=== PATIENT | female | born 1960 | race Hispanic/Latino ===

== ENCOUNTER 2016-10-19 23:19 | Emergency (ER) | payer OTHER ==
[~2016-10-19 23:19] MED LIST: CIPR-231 PO
[2016-10-19 23:33] VITALS: BP 170/82; PULSE 78; RESP 16; O2SAT 98
--- NOTE | 2016-10-20 00:24 | ED.REPORT ---
HPI-General Illness Date of Service Oct 20, 2016 ED Provider: Dr. Crawford Pt is a 56 year old [place] speaking female with a hx of HTN, hyperlipidemia and DM presenting to the ED complaining of high blood pressure and a headache onset at 1800 tonight. Her BP was 237 at home. Associated symptoms include right sided pain, weakness, throbbing in her neck, and right arm numbness ( chronic but worsened with the neck throbbing). Denies any other symptoms at this time. She went to her PCP last week and was told that her cholesterol was high. She denies missing any doses of her blood pressure medication. Nursing Notes Stated Complaint: HIGH BLOOD PRESSURE Chief Complaint: General Complaint Nursing Notes Reviewed: Yes Allergies: Coded Allergies: No Known Allergies (Verified , 11/06/05) Scheduled Ciprofloxacin (Cipro) 500 Mg Tablet 500 MG PO BID General Time Seen by MD: 00:22 Chief Complaint Other (High blood pressure) Hx Obtained From: Patient, Son Arrived By: Walk-in Sudden in Onset?: Yes Onset Occurred: 5 - 8 hours ago Symptom Duration: Since onset Location: : Arm right: Head: Neck Quality: Painful, Throbbing Severity: Current: Moderate Severity: Maximum: Severe Recent Healthcare: No recent doctor visit, No recent hospitalization Similar Sx Previous: No Past Medical History Past Medical History Reports: Diabetes mellitus, Hyperlipidemia, Hypertension Past Surgical History denies Smoking History Unknown if Ever Smoker Social History Other Social History: Good social support Ambulatory Status Independent Review of Systems + Right sided pain Full Review of Systems Respiratory: Denies: Wheezing Cardiovascular: Denies: Chest pain GI: Denies: Vomiting Musculoskeletal: Reports: Neck pain Neurologic: Reports: Numbness, Weakness Complete sys rev & neg: except as marked. Physical Exam Vital Signs Vital Signs Date Time Temp Pulse Resp B/P Pulse Ox O2 Delivery O2 Flow Rate FiO2 10/20/16 03:27 20 125/60 97 Room Air 10/20/16 02:59 73 20 141/75 97 Room Air 10/20/16 02:14 69 15 159/79 99 Room Air 10/19/16 23:33 36.7 78 16 170/82 98 Room Air Initial VS: Reviewed, Vital signs abnormal Head / Eyes: Atraumatic, Normocephalic, PERRL ENT: Mucous membranes moist, Conjunctiva normal, No scleral icterus Respiratory: Breath sounds normal, Clear to auscultation, No respiratory distress Cardiovascular: Regular rate & rhythm, Heart sounds normal, Intact distal pulses Abdomen / GI: Soft, Non-tender, No guarding, No rebound, No distention Extremities: Vascular intact, Neuro intact, No swelling, No tenderness Skin: Warm, Dry, No cyanosis Psychiatric: Mood/affect normal, Behavior normal, Normal thought content General/Constitutional: Awake, Alert, No acute distress, Well appearing Neurologic: Oriented X3, Speech NL, No motor deficits, No sensory deficits, CN II - XII intact Face symmetric. Does not appear confused. Normal strength in all four extremities. NIH stroke scale of 0. Interpretation & Diagnostics Lab Results Interpretation Result Diagram: 10/20/16 0143 10/20/16 0143 Test 10/20/16 01:43 White Blood Count 7.7th/mm3 (3.8-10.1) Red Blood Count 4.06mil/mm3 (3.90-5.20) Hemoglobin 12.5g/dL (12.0-15.6) Hematocrit 34.5% (35.0-46.0) Mean Corpuscular Volume 85.0fL (81-100) Mean Corpuscular Hemoglobin 30.8pg (27.0-35.0) Mean Corpuscular Hemoglobin Concent 36.2% (32.0-37.0) Red Cell Distribution Width 11.7% (12.3-15.4) Platelet Count 229bil/L (150-400) Neutrophils (%) (Auto) 49.2% (40-74) Lymphocytes (%) (Auto) 42.4% (14-46) Monocytes (%) (Auto) 6.9% (4-12) Eosinophils (%) (Auto) 1.0% (0-5) Basophils (%) (Auto) 0.4% (0-3) Sodium Level 137mEq/L (134-144) Potassium Level 3.9mEq/L (3.5-5.2) Chloride Level 98mEq/L (97-108) Carbon Dioxide Level 22mmol/L (18-29) Blood Urea Nitrogen 17mg/dL (6-24) Creatinine 0.69mg/dL (0.57-1.00) Estimat Glomerular Filtration Rate 126mL/min (>59) Glucose Level 177mg/dL (60-99) Calcium Level 9.4mg/dL (8.5-10.1) Magnesium Level 1.7mg/dL (1.6-2.6) Total Bilirubin 0.3mg/dL (0.0-1.2) Aspartate Amino Transf (AST/SGOT) 21U/L (0-50) Alanine Aminotransferase (ALT/SGPT) 22U/L (0-32) Alkaline Phosphatase 58U/L (25-150) Troponin T 0.010ug/L (0.0-0.011) Total Protein 8.0g/dL (6.4-8.4) Albumin 4.5g/dL (3.4-5.0) Hold Geiger Top Tube Received (Received) Lab values outside NL range: no clinical significance. ECG Interpretation Time: 00:03 Interpreted by: ED physician Normal ECG Interpretation: Normal ECG w/ rate of... (75), Normal sinus rhythm X-Ray Chest Interpretation Chest Xray Interpretation: No acute cardiopulmonary process. View: Portable, 1 view Interpretation / Wet Read by: Wet read ED physician CT Head Interpretation CONCLUSION: No acute intracranial findings. This report was transmitted to the emergency room at 10/20/2016 - 1:27:45 AM PDT. Study: Head CT no contrast Interpretation / Wet Read by: Interpret - Radiologist Re-Eval/Medical Decision Med Decision/Clinical Course Elevated blood pressure normalized on its own without specific treatment. Cause uncertain. Head CT scan was performed because of the right-sided neck and arm symptoms, and it was negative. Her headache went away with Tylenol. Head CT scan showed no abnormalities. She will be discharged home with instructions to follow up with her primary doctor as soon as possible. Time of Eval: 03:00 Patient Status: Condition improved Re-Evaluation/Progress Note: Discussed plan for discharge. Pt understands and agrees with plan. Counseled Regarding: Diagnosis, Lab results, Need for follow-up, When/why to return to ED Discharge & Departure Primary Impression: Labile hypertension Additional Impression: Headache Headache type: unspecified Headache chronicity pattern: unspecified pattern Intractability: intractable Qualified Code: R51 - Headache Disposition: Home Discharge Condition All VS Reviewed: Yes Condition: Improved Patient Instructions: Hypertension (DC) Additional Instructions: Keep a written record of your blood pressure readings and talk to your regular doctor about whether your medicines need to be changed or not. CT scan and labs are all normal. No evidence of damage because of the high blood pressure. Referrals: [facility] Scribe Attestation Portions of this note were transcribed by Barby Lou. I, Dr. Crawford personally performed the history, physical exam and medical decision-making; I reviewed and confirmed the accuracy of the information in the transcribed note. Signed by: Bruno Bourgeois, 10/20/2016 at 0300. copies to: [facility] Nikko Crawford MD Oct 20, 2016 00:23 BARBY LOU Oct 20, 2016 00:29
[2016-10-20 01:49] LABS: BASOPHILS % (AUTO) 0.4 % (0-3); MONOCYTES % (AUTO) 6.9 % (4-12); Mean Corpuscular Hemoglobin 30.8 pg (27.0-35.0); NEUTROPHILS % (AUTO) 49.2 % (40-74); Platelet Count 229 bil/L (150-400)
[2016-10-20 02:14] VITALS: BP 159/79; PULSE 69; RESP 15; O2SAT 99
[2016-10-20 02:30] LABS: Magnesium 1.7 mg/dL (1.6-2.6); TROPONIN T 0.01 ug/L (0.0-0.011)
[2016-10-20 02:59] VITALS: BP 141/75; PULSE 73; RESP 20; O2SAT 97
[2016-10-20 03:27] VITALS: BP 125/60; RESP 20; O2SAT 97
--- NOTE | 2016-10-20 08:08 | DRSVH ---
PROCEDURE: CT BRAIN WITHOUT CONTRAST ([id number]) INDICATIONS: right arm weakness and numbness, hi BP TECHNIQUE: Noncontrast 4.5 mm thick angled axial sections acquired from the foramen magnum to the vertex, with c oronal reformats. COMPARISON: None. FINDINGS: Preliminary report by shift mgr radiology Image quality: Excellent. CSF spaces: Basal cisterns are patent. No extra-axial fluid collections. Ventricles are normal in size and shape. Brain: No midline shift. No intracranial masses or hemorrhage. Hernandez-white matter interface is norm al. No hyperdense vessels. Skull and face: Calvarium and visualized facial bones are intact, without suspicious lesions. Sinuses: Visualized sinuses and mastoids are clear. IMPRESSION: 1. Normal CT brain scan. Findings are concordant with the preliminary report. Dictated by: Brock Lopez M.D. on 10/20/2016 at 8:03 Approved by: Brock Lopez M.D. on 10/20/2016 at 8:06
--- NOTE | 2016-10-20 08:26 | DRSVH ---
PROCEDURE: X-RAY CHEST ONE VIEW, PORTABLE ([id number]) INDICATIONS: Hypertension TECHNIQUE: One view of the chest was acquired. COMPARISON: None. FINDINGS: Surgical changes and devices: None. Lungs and pleura: No pleural effusions or pneumothorax. Lungs are clear. Mediastinum: Mediastinal contours appear normal. Heart size is normal. Bones and chest wall: No suspicious bony lesions. Overlying soft tissues appear unremarkable. IMPRESSION: 1. No acute cardiopulmonary disease. Dictated by: Jovon Wild M.D. on 10/20/2016 at 8:23 Approved by: Jovon Wild M.D. on 10/20/2016 at 8:24
== END 2016-10-20 03:27 | disposition home or self-care (01) ==
LOC: SED 23:19
DX: I10 Essential (primary) hypertension (principal); E11.9 Type 2 diabetes mellitus without complications; E78.5 Hyperlipidemia, unspecified